=== PATIENT | male | born 1950 | race African-American/Black ===

== ENCOUNTER 2016-12-14 17:35 | Emergency (ER) | payer OTHER ==
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
[2016-12-14] MEDS ORDERED: ONDANSETRON PF 4 MG/2 ML VIAL. IV ONE ×2 (18:45→20:45)
[2016-12-14] MEDS ORDERED: fentaNYL PF 100 MCG/2 ML VIAL IV ONE (19:00)
[2016-12-14 19:06] LABS: HEMATOCRIT 38.5 % (39.0-53.0); HEMOGLOBIN 12.4 g/dL (13.0-17.5); RED BLOOD COUNT 4.66 x10^6/uL (4.30-5.70); RED CELL DISTRIBUTION WIDTH 14.5 % (11.5-14.5); WHITE BLOOD COUNT 7.6 x10^3/uL (4.0-11.0)
[2016-12-14 19:08] LABS: CALCIUM 8.8 mg/dL (8.5-10.1); CREATININE 1.3 mg/dL (0.7-1.3); GFR 66.4; POTASSIUM 3.8 mmol/L (3.5-5.1)
[2016-12-14] MEDS ORDERED: IV NORMAL SALINE 1,000ML 1,000 ML IV ONE ×2 (19:15→21:00)
[2016-12-14] MEDS ORDERED: IV NORMAL SALINE 1,000ML 1,000 ML ONE (19:17)
[2016-12-14] MEDS ORDERED: CONTRAST GIVEN MC PRN (20:15)
[2016-12-14] MEDS ORDERED: IOHEXOL 300 MG/ML 75 ML VIAL. IV ONE (20:15)
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
[2016-12-14 21:25] LABS: BILIRUBIN,URINE NEG (NEG); CLARITY,URINE CLOUDY; COLOR,URINE AMBER; GLUCOSE,URINE NEG (NEG); NITRITE,URINE NEG (NEG); UROBILINOGEN,URINE 0.2 mg/dL (0.2 mg/dL)
[2016-12-14 21:26] LABS: BACTERIA,URINE 0 /HPF (0-FEW); RBC,URINE >40 /HPF (0-2)
[2016-12-14 21:27] LABS: HYALINE CASTS, URINE FEW /HPF
[2016-12-14] MEDS ORDERED: NITROGLYCERIN SUBLINGUAL 0.4 MG BOTTLE OF 25. SL ONE (21:30)
[2016-12-14] MEDS ORDERED: HEPARIN for IV BOLUS 10,000 UNIT/10 ML VIAL. IV PRN ×2 (21:45)
[2016-12-14] MEDS ORDERED: HEPARIN 25,000UTS/500ML PREMIX 500 ML IV PRN (21:45)
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
[2016-12-14] MEDS ORDERED: FUROSEMIDE 40 MG/4 ML VIAL IVP ONE (22:00)
[2016-12-14] MEDS ORDERED: ASPIRIN ENTERIC COATED 81 MG TABLET.DR. PO ONE (22:00)
[2016-12-14] MEDS ORDERED: HEPARIN for IV BOLUS 10,000 UNIT/10 ML VIAL. IV ONE (22:00)
[2016-12-14 23:40] VITALS: BP 141/81
--- NOTE | 2016-12-15 01:24 | EKG ---
[address] [address] Test Date: 2016-12-14 Test Time: 21:10:03 Pat Name: KAROLYN THOMPSON Department: Room: Gender: M Pipeline Welder: : [id number] Requested By: NIKA ZHU Order Number: [id number] Reading MD: Measurements Intervals [place] Rate: 100 P: 120 FL: 146 QRS: -47 QRSD: 118 T: 121 QT: 378 QTc: 491 Interpretive Statements SINUS RHYTHM LEFT ATRIAL ABNORMALITY ABNORMAL LEFT AXIS DEVIATION LEFT ANTERIOR FASCICULAR BLOCK LVH WITH REPOLARIZATION ABNORMALITY QRS(T) CONTOUR ABNORMALITY CANNOT RULE OUT ANTEROSEPTAL MYOCARDIAL DAMAGE CANNOT RULE OUT INFERIOR MYOCARDIAL DAMAGE PROLONGED QT RI6.01 Unconfirmed report No previous ECG available for comparison
--- NOTE | 2016-12-15 08:34 | RAD ---
Indication shortness of air. A single view of the chest was obtained. No prior imaging of the chest is available. There is mild cardiomegaly. There is perhaps very mild pulmonary vascular congestion. There is no consolidated pneumonia. Tiny pleural effusions are suspect. No pneumothorax is seen. IMPRESSION: Generalized enlargement of the cardiac silhouette. Suspect mild pulmonary vascular congestion. Probable tiny pleural effusions
== END 2016-12-14 23:40 | disposition short-term general hospital (02) ==
LOC: ER 17:35 → EEVIPCON 17:35 → ER 23:40
DX: I24.9 Acute ischemic heart disease, unspecified (principal); I50.9 Heart failure, unspecified; E78.00 Pure hypercholesterolemia, unspecified; J44.9 Chronic obstructive pulmonary disease, unspecified; Z88.6 Allergy status to analgesic agent; Z88.8 Allergy status to other drugs, medicaments and biological substances
CPT/HCPCS: 36415; 71010; 74177; 80048; 81001; 83690; 83880; 84484; 85027; 85610; 85730; 93005; 96361; 96365; 96374; 96375; 96376; 99285; J1644; J1940; J2405; J3010; Q9967; J7030